=== PATIENT | female | born 1975 | race Caucasian/White ===

== ENCOUNTER 2016-09-11 09:16 | Emergency (ER) | payer MEDICAID ==
[~2016-09-11] VITALS: Ht 177.8 cm; Wt 63.0 kg
[~2016-09-11 09:16] MED LIST: IBUP400T20 PO; MIREIUD I-UTERINE
[2016-09-11 09:24] VITALS: BP 128/82; PULSE 103; RESP 16; TEMP 98; O2SAT 99
[2016-09-11] MEDS ORDERED: CYCL1TAB29 PO (09:46)
[2016-09-11] MEDS ORDERED: MEDR4PAK PO (09:46)
[2016-09-11] MEDS ORDERED: NORC5TAB PO (09:46)
--- NOTE | 2016-09-11 09:46 | PD ---
HPI Chief Complaint: Injury Time Seen by Provider: 09:34 Travel History International Travel<30 days: No Contact w/Intl Traveler<30days: No Traveled to known affect area: No History of Present Illness HPI The patient is a 41-year-old female who presents to the emergency department for left-sided neck pain. The patient [place] the [place] and thinks she may have injured her neck at that time. The patient denies any significant whiplash injuries or falls prior to the onset of pain. The pain is located lateral aspect the left neck, radiates to the posterior aspect left shoulder, is worse with certain types of movement and alleviated at rest. The pain does not radiate down the left arm. She denies any weakness, numbness, or paresthesias of the left upper extremity. She denies any history of osteopenia, osteoporosis, or metastatic bone cancer. She denies any significant injury to the neck. The patient did take ibuprofen and a family member's hydrocodone with mild relief of her symptoms. Symptoms are mild to moderate, worse with certain types of movement, slightly alleviated at rest. PFSH Past Medical History Medical History: Denies Significant Hx Asthma: No Autoimmune Disease: No COPD: No Diminished Hearing: No Immunizations Current: Yes Influenza Vaccination: No PNEUMOCCOCAL Vaccine (Year): 3 ?: Not LMP: MIRENA : 11 Para: 5 Miscarriage: 4 : 2 Ovarian Cysts: Yes (Ruptured (L)) Past Surgical History Section: Yes ( X's 5) Social History Alcohol Use: Yes (OCCAS) Tobacco Use: No Substance Use: No Allergies-Medications (Allergen,Severity, Reaction): Coded Allergies: No Known Allergies (Verified , 09/11/16) Reported Meds & Prescriptions Reported Meds & Active Scripts Active Ibuprofen 400 Mg Tab 400 Mg PO Q6H PRN Reported Mirena (Levonorgestrel (Iud)) 20 Mcg/24 Hr Iud 52 Mg I-UTERINE ONCE Review of Systems HENT: Positive: Neck Stiffness, Neck Pain, No: Lightheadedness Cardiovascular: No: Chest Pain or Discomfort Respiratory: No: Shortness of Breath Musculoskeletal: No: Weakness Neurologic: No: Paresthesia, Sensory Disturbance Physical Exam Narrative GENERAL: Awake, alert, pleasant 41-year-old female who appears her stated age and is in no acute respiratory distress. SKIN: Focused skin assessment warm/dry. HEAD: Atraumatic. Normocephalic. EYES: Pupils equal and round. No scleral icterus. No injection or drainage. ENT: No nasal bleeding or discharge. Mucous membranes pink and moist. NECK: Trachea midline. No JVD. Mild tenderness of the left paravertebral muscle and the left trapezius. No midline tenderness. Patient is able to flex , extend, and rotate her neck to left and right, movements to precipitate her pain. MUSCULOSKELETAL: No obvious deformities. No clubbing. No cyanosis. No edema. Positive left radial pulse. Full range of motion of the left upper extremity. NEUROLOGICAL: Awake and alert. No obvious cranial nerve deficits. Motor grossly within normal limits. Normal speech. Sensation is intact on the left upper extremity radial, median, and ulnar distribution. PSYCHIATRIC: Appropriate mood and affect; insight and judgment normal. Data Data Last Documented VS Vital Signs Date Time Temp Pulse Resp B/P Pulse Ox O2 Delivery O2 Flow Rate FiO2 09/11/16 09:24 98.0 103 16 128/82 99 MDM Medical Decision Making Medical Screen Exam Complete: Yes Emergency Medical Condition: Yes Medical Record Reviewed: Yes Differential Diagnosis Differential diagnosis includes muscle spasm, fracture, neuropathy, radiculopathy, hematoma, contusion. Narrative Course The patient's history and physical are consistent with a neck strain. The patient will be placed on Medrol Dosepak, Flexeril, and Mclean as needed for pain. She is advised to apply ice and/or heat to the affected area. Soft neck collar as needed. Diagnosis Primary Impression: Neck strain Qualified Code: S16.1XXA - Strain of neck muscle, initial encounter Patient Instructions: General Instructions Additional Instructions: Medications as directed. Soft cervical collar as needed. Follow-up with your primary physician. Return if symptoms worsen or progress. Med/Other Pt SpecificInfo: Prescription(s) given Scripts Hydrocodone-Acetaminophen (Mclean)5-325 mg Tab1 Tab PO Q6H PRN (PAIN) #15 TAB Ref 0 Prov:Keshawn Velasco MD 09/11/16 Cyclobenzaprine (Flexeril)10 Mg Tab10 Mg PO TID #30 TAB Ref 0 Prov:Keshawn Velasco MD 09/11/16 Methylprednisolone Dosepak (Medrol Dosepak)4 Mg Dspk4 Mg PO DIRECTED #1 DSPK Ref 0 Per Pharmacist direction Prov:Keshawn Velasco MD 09/11/16 Disposition: 01 DISCHARGE HOME Condition: Stable Keshawn Velasco MD Sep 11, 2016 09:46
== END 2016-09-11 10:00 | disposition home or self-care (01) ==
LOC: PHED 09:16
DX: S16.1XXA Strain of muscle, fascia and tendon at neck level, initial encounter (principal); X58.XXXA Exposure to other specified factors, initial encounter